=== PATIENT | female | born 1965 | race Caucasian/White ===

== ENCOUNTER → 2016-12-01 | Outpatient (CLI) | payer OTHER | LOC: FIMAGING 09:47 | PROVIDERS: ATTEND Family Medicine | DX: Z12.11 Encounter for screening for malignant neoplasm of colon (principal); R63.4 Abnormal weight loss; Q63.1 Lobulated, fused and horseshoe kidney | CPT/HCPCS: 74263-PO ==

== ENCOUNTER 2017-04-21 19:23 | Emergency (ER) | payer OTHER ==
[2017-04-21] MEDS ORDERED: IBUPROFEN 600 MG TAB PO ONE (19:43)
--- NOTE | 2017-04-21 19:47 | EDPHY ---
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 The incident occurred approximately an hour and 20 min prior to arrival by private vehicle. She has not taken any medication for her pain. Other than the worsening with movement she notes no other exacerbating factors. She denies any other injuries from the fall. ROS: Neuro: Mild paresthesias to the fingers in the affected hand. No rajeev numbness. No head injury Cardiovascular: No pallor to the affected extremity Integumentary: No lacerations or abrasions Musculoskeletal: No other injuries from the fall. 5 point ROS is otherwise negative Past Medical/Surgical History: Otherwise healthy Social History: Right-handed. 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 General: No acute distress HEENT: Atraumatic. Eyes: Pupils equal and react to light. Extraocular motions are intact. Lungs: No respiratory distress. Cardiac: Brisk capillary refill is intact throughout. Pulses are 2+ and symmetric in the affected extremity. Skin: No rash or pallor. Extremities: Atraumatic normal except for left wrist Left wrist: Patient has moderate dorsal swelling ulnar slightly more than radial with associated moderate tenderness. She also has mild anatomical snuffbox tenderness. No significant volar tenderness. She has limited range of motion due to pain in her wrist. No hand abnormalities. No forearm or elbow abnormalities. Neuro: Alert with no sensorimotor deficits in the affected extremity. Initial differential diagnosis: Wrist fracture, wrist sprain, traumatic hematoma Constitutional: Initial Vital Signs Temperature (C) 37.0 C 04/21/17 19:33 Heart Rate 81 04/21/17 19:33 Respiratory Rate 18 04/21/17 19:33 Blood Pressure 120/55 L 04/21/17 19:33 O2 Sat (%) 96 04/21/17 19:33 O2 Delivery Mode Room Air Allergies/Adverse Reactions: No Known Allergies Allergy (Unverified 04/21/17 21:33) Home Medications: Medication Instructions Recorded traMADol [Ultram 50 mg (*)] 50 - 100 mg PO Q4 PRN #15 tab 04/21/17 MDM/Departure - MDM Diagnostics: Wrist x-ray: Angulated Colles fracture by my interpretation Imaging Results: Imaging Impressions Wrist X-Ray 04/21/17 19:33 Impression: Comminuted transverse fracture of the distal radius, with dorsal angulation and equivocal intraarticular extension. Wrist X-Ray 04/21/17 21:10 Impression: Mild residual dorsal displacement of a transverse comminuted distal radial metaphyseal fracture with probable intra-articular extension. Wrist x-rays: Comminuted Colles fracture with dorsal angulation Post reduction: Improvement in fracture alignment Imaging: I viewed and interpreted images myself Procedures: Hematoma block: After verbal consent these chlorhexidine for cleaning to the dorsal radius, 1% plain lidocaine with 27 gauge needle to make as skin wheal at the desired and reports just proximal to the fracture and then a 23 gauge 1 in needle using at 50 50 mix of 2% plain lidocaine and 0.5% Marcaine-8 mL injected with good effect. This is performed after I withdrew small amount of blood consistent with a hematoma from the fracture. Patient tolerated this well with no complications. Closed reduction: Indication: Patient has paresthesias in the radial nerve distribution prior to the procedure and at angulated fracture warranting reduction. After verbal consent proceeded with traction and manipulation pushing from the dorsum of the fracture toward the volar direction with good results. There were no complications. Patient tolerated this well. Post reduction film reveals significant improvement in the fracture alignment. She is then placed in Orthoglass splint by our tech with my supervision-navya pires. Medications Given: Discontinued Medications Ibuprofen (Motrin) 600 mg PO EDNOW ONE Stop: 04/21/17 19:44 Last Admin: 04/21/17 19:50 Dose: 600 mg Tramadol HCl (Ultram) 100 mg PO EDNOW ONE Stop: 04/21/17 21:44 Last Admin: 04/21/17 21:44 Dose: 100 mg ED Course/Re-evaluation: Ibuprofen p.o. I spoke with JARED Reed For Dr. Hawk-orthopedic hand specialist. Dr. Hawk reviewed the films and agrees with plan for reduction here and follow up on Monday with Dr. Hawk Counseled the patient regarding her fracture. Close reduction accomplished with significant improvement in fracture alignment. She will follow up with Dr. Hawk early this coming week. - Depart Disposition: Home, Routine, Self-Care Clinical Impression: Colles' fracture of left radius Qualifiers: Encounter type: initial encounter Fracture type: closed Qualified Code(s): S52.532A - Colles' fracture of left radius, initial encounter for closed fracture Condition: Good Instructions: Tramadol (By mouth), Wrist Fracture in Adults (ED) Additional Instructions: Diagnosis: Colle's wrist fracture Plan: Keep the splint on at all times clean and dry Ibuprofen and Tylenol for pain. Tramadol in addition if needed for pain. No driving, alcohol work on tramadol Sling when your up and about No work until you follow up with Dr. Hawk Call Dr. Hawk's office on Monday for follow-up appointment. Also Call your work comp clinic to arrange follow-up appointment (after seeing Dr. Hawk) Prescriptions: traMADol [Ultram 50 mg (*)] 50 - 100 mg PO Q4 PRN #15 tab PRN Reason: breakthrough pain Referrals: Daryl Raymond DO [Primary Care Provider] - As per Instructions Sudheer Hawk MD [Medical Doctor] - As per Instructions
[2017-04-21] MEDS ORDERED: traMADol 50 MG TAB ONE (21:42)
[2017-04-21] MEDS ORDERED: traMADol 50 MG TAB PO ONE (21:43)
[2017-04-21 21:46] VITALS: BP 114/61; PULSE 77; RESP 14; TEMP 98.8; O2SAT 94
== END 2017-04-21 21:46 | disposition home or self-care (01) ==
LOC: CED 19:23
PROC: 0PSJXZZ Reposition Left Radius, External Approach (ICD-10-PCS; principal; 2017-04-21)
DX: S52.532A Colles' fracture of left radius, initial encounter for closed fracture (principal); W01.0XXA Fall on same level from slipping, tripping and stumbling without subsequent striking against object, initial encounter; Y92.89 Other specified places as the place of occurrence of the external cause; Y99.0 Civilian activity done for income or pay; Y93.89 Activity, other specified
CPT/HCPCS: 73100-PO; 73110-PO; A4565